=== PATIENT | female | born 1990 | race Caucasian/White ===

== ENCOUNTER 2024-03-04 15:10 | Emergency (ER) | payer MEDICAID, OTHER ==
[~2024-03-04] VITALS: Ht 170.2 cm; Wt 77.1 kg
[2024-03-04 15:36] VITALS: BP_SYST 117; PULSE 70; RESP 18; TEMP 97.8; O2SAT 99
[2024-03-04 17:58] VITALS: BP_SYST 117; PULSE 70; RESP 18; TEMP 97.8; O2SAT 99
== END 2024-03-04 17:43 | disposition home or self-care (01) ==
LOC: SED 15:10
DX: R19.09 Other intra-abdominal and pelvic swelling, mass and lump (principal); R07.2 Precordial pain; Z98.890 Other specified postprocedural states
CPT/HCPCS: 71045; 99283